=== PATIENT | male | born 1980 | race Caucasian/White ===

== ENCOUNTER 2019-08-30 22:52 | Emergency (ER) | payer SELFPAY ==
[~2019-08-30] VITALS: Ht 182.9 cm; Wt 79.4 kg
[2019-08-30 23:09] VITALS: BP 119/67; Ht 182.9 cm; Wt 79.4 kg
== END 2019-08-31 00:46 | disposition left against medical advice (07) ==
LOC: ED 22:52
DX: F10.129 Alcohol abuse with intoxication, unspecified (principal); R40.4 Transient alteration of awareness; F17.210 Nicotine dependence, cigarettes, uncomplicated
CPT/HCPCS: G0480; Q0162